=== PATIENT | male | born 2000 | race Caucasian/White ===

== ENCOUNTER 2023-10-02 23:51 | Emergency (ER) | payer OTHER, SELFPAY ==
[2023-10-02 23:53] VITALS: BP 112/65; PULSE 99; RESP 16; TEMP 36.8; O2SAT 100
--- NOTE | 2023-10-03 00:46 | ED.EAR ---
HPI - Ear Problem General Chief complaint: Ear Stated complaint: left ear pain, cannot hear out of it, COVID + Time Seen by Provider: 10/03/23 00:34 Source: patient Mode of arrival: ambulatory Limitations: no limitations History of Present Illness HPI Narrative: Patient is a 23 y/o male who presents ED with report of left ear pain. Patient reports having pain for the last several hours in his left ear. He reports pain radiating to left side of face/neck. Denies drainage from ear. Does report decreased hearing. He has not taken anything for pain since noon yesterday. Also reports redness and watery drainage from left eye. Patient is currently COVID positive. Denies fevers. Related Data Allergies Allergy/AdvReac Type Severity Reaction Status Date / Time Cephalosporins Allergy Intermediate RASH Verified 11/26/22 13:00 Sulfa (Sulfonamide Allergy Intermediate Dyspnea / Verified 11/26/22 13:00 Antibiotics) SOB,BLISTERS amoxicillin Allergy Hives Verified 11/26/22 13:00 PCN Allergy Severe ANAPHALIC Uncoded 11/26/22 13:00 REACTION Review of Systems Review of Systems: CONSTITUTIONAL: Denies fever, chills, or sweats. ENT: See HPI. NEUROLOGIC: Denies headache, dizziness, numbness, or weakness. All systems reviewed & are unremarkable except as noted in HPI and below PMFSH Past Medical History Medical History ADHD Anxiety Depression Family History Family History Grandparent Malignant neoplasm of prostate Depression Social History Social History Smoking status: Current some day smoker Tobacco type: e-cigarettes/vaping Alcohol intake: current Substance use: former Lack of Transportation: No Lack of Food: Never True Current Housing: I Have Housing Concerned About Future Housing: No Difficulty Paying Gas/Electric Bills: No Difficulty Paying for Meds: YES Currently Unemployed: No Education: High School Diploma/GED Difficulty w/ Childcare or Family Care: No Exam Narrative: GENERAL: Mildly ill appearing, well-nourished, non-toxic, in no acute distress. HEAD: Normocephalic, atraumatic. EYES: L eye conjunctival injection. Scant amount of watery serous drainage. R eye normal. ENT: L ear with moderate swelling and erythema to the EAC, TM mostly visible and does appear erythematous, bulging, inflamed. No significant drainage. No significant cerumen. Mild tenderness with palpation of tragus on left. Right EAC very minimally erythematous, no significant swelling. TM on right appears normal. RESPIRATORY: Airway patent, respirations nonlabored. CARDIOVASCULAR: Regular rate and rhythm. MUSCULOSKELETAL: Moves all extremities. No gross deformities. SKIN: Warm, dry, normal color. NEURO: A&O X3. Speech clear. Cranial nerves II-XII grossly intact. Steady gait. No ataxic movements. PSYCHIATRIC: Appropriate mood and affect. Normal interaction. Course Vital Signs Vital signs: Vital Signs Temperature 98.2 F 10/02/23 23:53 Pulse Rate 99 10/02/23 23:53 Respiratory Rate 16 10/02/23 23:53 Blood Pressure 112/65 10/02/23 23:53 Pulse Oximetry 100 10/02/23 23:53 Oxygen Delivery Room Air 10/02/23 23:53 Temperature 98.2 F 10/02/23 23:53 Pulse Rate 88 10/03/23 01:37 Respiratory Rate 16 10/03/23 01:37 Blood Pressure 116/64 10/03/23 01:37 Pulse Oximetry 100 10/03/23 01:37 Oxygen Delivery Room Air 10/02/23 23:53 Medical Decision Making MDM Narrative Medical decision making narrative: Patient presented to ED COVID positive with report of left ear pain, left eye redness. VSS upon arrival. Patient afebrile. No acute distress but mildly ill appearing. Exam concerning for left AOE/AOM, left eye conjunctivitis. Patient with COVID, likely post viral in nature. Will treat wit
[2023-10-03] MEDS: CLARITHROMYCIN 500 MG TABLET PO (01:34)
[2023-10-03] MEDS: HYDROcodone/acetaminophen (*CRX) 5-325 MG TABLET 1 TAB PO (01:34)
[2023-10-03 01:37] VITALS: BP 116/64; PULSE 88; RESP 16; O2SAT 100
== END 2023-10-03 01:40 | disposition home or self-care (01) ==
LOC: ANHED 10-03 01:32
PROVIDERS: Emergency Provider Physician Assistant; PCP Internal Medicine
DX: U07.1 COVID-19 (principal); H60.502 Unspecified acute noninfective otitis externa, left ear; H66.002 Acute suppurative otitis media without spontaneous rupture of ear drum, left ear; H10.32 Unspecified acute conjunctivitis, left eye; F17.290 Nicotine dependence, other tobacco product, uncomplicated
CPT/HCPCS: 99283; A9270